=== PATIENT | female | born 1985 | race Caucasian/White ===

== ENCOUNTER 2018-01-09 04:55 | Emergency (ER) | payer SELFPAY ==
[~2018-01-09] VITALS: Ht 157.5 cm; Wt 57.3 kg
[2018-01-09 06:01] VITALS: BP 141/91
[2018-01-09] MEDS ORDERED: ValACYclovir HCL 500 MG TABLET PO ONE ×2 (06:30)
[2018-01-09] MEDS ORDERED: PredniSONE 20 MG TABLET PO ONE (06:30)
[2018-01-09] MEDS ORDERED: DiphenhydrAMINE HCL 25 MG CAPSULE PO ONE (06:30)
== END 2018-01-09 06:45 | disposition home or self-care (01) ==
LOC: EMS 04:55
DX: T78.40XA Allergy, unspecified, initial encounter (principal); B00.1 Herpesviral vesicular dermatitis; X58.XXXA Exposure to other specified factors, initial encounter
CPT/HCPCS: 99284; J7512